=== PATIENT | male | born 1985 | race Two or more races ===

== ENCOUNTER 2018-11-16 15:42 | Emergency (ER) | payer OTHER ==
[~2018-11-16] VITALS: Ht 180.3 cm; Wt 63.5 kg
[2018-11-16 15:42] VITALS: BP 110/71
== END 2018-11-16 16:24 ==
LOC: ER 15:43
DX: Z02.89 Encounter for other administrative examinations (principal); F32.9 Major depressive disorder, single episode, unspecified; F41.9 Anxiety disorder, unspecified; F90.9 Attention-deficit hyperactivity disorder, unspecified type
CPT/HCPCS: 99283; A4606